=== PATIENT | male | born 1955 | race Caucasian/White ===

== ENCOUNTER 2023-05-30 19:41 | Emergency (ER) | payer OTHER, SELFPAY ==
--- NOTE | ~2023-05-30 | XR_ITS ---
EXAMINATION: XR ribs BI 3V w CXR 2V DATE: 05/30/2023 20:50 INDICATION: Right rib pain. Fall. TECHNIQUE: Frontal and lateral views of the chest and 2 views on 3 radiographs of the right ribs and 2 views on 3 radiographs of the left ribs were obtained. COMPARISON: None. FINDINGS: CHEST TWO VIEWS: There is no pneumonia, pleural effusion, or pneumothorax. The heart size is normal. BILATERAL RIBS: There is no rib fracture. IMPRESSION: 1. No rib fracture. Reviewed, dictated and finalized at location E. ER HELPER IMPRESSION: 1. No rib fracture.
--- NOTE | ~2023-05-30 | CT_ITS ---
EXAMINATION: CT brain wo con DATE: 05/30/2023 20:57 INDICATION: Head injury. TECHNIQUE: Computed tomography (CT) of the head was performed without intravenous contrast. The mA wa s adjusted according to patient size. Iterative reconstruction technique was employed. The dose-lengt h product was 681.00 mGy-cm. COMPARISON: None FINDINGS: There is no intracranial hemorrhage, acute infarction, or abnormal intracranial mass lesion . There are scattered areas of low attenuation in the cerebral white matter, which is within normal l imits for the patient's age. The ventricles are normal in size. There is mucosal thickening in the pa ranasal sinuses. The orbits are normal. The mastoid air cells are normal. IMPRESSION: 1. Normal aging brain. Reviewed, dictated and finalized at location E. GER LIGHTING IMPRESSION: 1. Normal aging brain.
--- NOTE | ~2023-05-30 | CT_ITS ---
EXAMINATION: CT cervical spine wo con DATE: 05/30/2023 20:57 INDICATION: Head injury. TECHNIQUE: Computed tomography (CT) of the cervical spine was performed without intravenous contrast. Automated exposure control and iterative reconstruction technique were employed. The dose-length pro duct was 407.70 mGy-cm. COMPARISON: None FINDINGS: Bone alignment is normal. There is mild chronic anterior wedging of T1 vertebral body. Ther e is moderately decreased disc height at C2-C3, mildly decreased disc height at C3-C4 and C4-C5 and m oderately decreased disc height at C6-C7. There is developmental osseous central canal stenosis in ce rvical spine. The following disc levels are specifically discussed: C2-C3: There is mild bilateral uncovertebral joint osteoarthritis. There is severe right and mild lef t facet joint osteoarthritis. There is no neural foraminal stenosis. There is mild central canal sten osis. C3-C4: There is moderate right and mild left uncovertebral joint osteoarthritis. There is mild bilate ral facet joint osteoarthritis. There is mild right neural foraminal stenosis. There is mild central canal stenosis. C4-C5: There is mild bilateral uncovertebral joint osteoarthritis. There is severe right and mild lef t facet joint osteoarthritis. There is mild bilateral neural foraminal stenosis. There is mild centra l canal stenosis. C5-C6: There is mild bilateral uncovertebral joint osteoarthritis. There is mild right facet joint os teoarthritis. There is mild left neural foraminal stenosis. There is mild central canal stenosis. C6-C7: There is severe bilateral uncovertebral joint osteoarthritis. There is severe bilateral facet joint osteoarthritis. There is moderate bilateral neural foraminal stenosis. There is mild central ca nal stenosis. C7-T1: There is no uncovertebral joint osteoarthritis. There is severe right and mild left facet join t osteoarthritis. There is mild right neural foraminal stenosis. There is no central canal stenosis. IMPRESSION: 1. No fracture. 2. Moderate cervical spondylosis. Reviewed, dictated and finalized at location E. NG MACHINE TENDER
[2023-05-30 19:46] VITALS: BP 151/82; PULSE 75; RESP 16; TEMP 36.7; O2SAT 100
--- NOTE | 2023-05-30 20:54 | ED.FALL ---
HPI - Fall General Chief Complaint: Fall Stated Complaint: Fall Time Seen by Provider: 05/30/23 20:05 Source: patient Mode of arrival: ambulatory Limitations: no limitations History of Present Illness HPI Narrative: 68-year-old male presents today with complaints of a fall. Patient was at work today carrying a tray of dishes when he fell forward. Landing chest and face 1st. Hitting his right forehead on a tray landing on the dishes. Patient with complaints of pain to the right chest wall some discomfort to the right wrist but not much. He did not think he hit his head at 1st but noticed abrasion with some swelling to the right forehead. He is not on blood thinners but does take a baby aspirin every night. This occurrence happened at 5:30 a.m. this evening. complaint: fall Related Data Allergies Allergy/AdvReac Type Severity Reaction Status Date / Time lisinopril Allergy Swelling Verified 05/30/23 19:50 of Lip/Tongue/Throat Review of Systems Review of Systems: All systems reviewed & are unremarkable except as noted in HPI and below [facility] Past Medical History Medical History (Updated 05/31/23 @ 02:41 by Gisele Lopez APRN) HTN (hypertension) with goal to be determined ME (myocardial infarction) Exam Const: General: cooperative, healthy appearing, comfortable, no acute distress and well developed Orientation/consciousness: patient oriented x3 HENMT: Head: normal to inspection Other: Right forehead abrasion with small amount of swelling Eyes: General: appearance normal, both eyes and all related structures Chest: Chest palpation & inspection: normal inspection of the chest and tenderness rib (right lower ribs) Other: no noted deformity or ecchymosis Resp: Effort & Inspection: normal respiratory effort and able to speak in complete sentences Auscultation: clear to auscultation bilaterally Cardio: Rate: regular rate Rhythm: regular rhythm Heart sounds: S1 normal heart sound present and S2 normal heart sound present Back/Spine/Pelvis: Cervical Spine: cervical ROM normal, No pain with cervical ROM and No Cervical spine tenderness Thoracic/Lumbar Spine: thoracic and lumbar spine normal to inspection, No paraspinal muscle tenderness and No thoracic spinal tenderness Neuro: General: patient oriented x3 Cranial nerves: Yes CN's II-XII intact bilaterally, Yes Equal, round and reactive pupils present, Yes Nystagmus not present, Yes facial symmetry, Yes Ability to bilaterally rotate head present and Yes Ability to bilaterally elevate shoulders present Motor exam (neuro): 5/5 motor strength present throughout Extrem: Other: Right wrist full range of motion, no edema no erythema no lacerations no bruising noted Course Vital Signs Vital signs: Vital Signs Temperature 98.1 F 05/30/23 19:46 Pulse Rate 75 05/30/23 19:46 Respiratory Rate 16 05/30/23 19:46 Blood Pressure 151/82 H 05/30/23 19:46 Pulse Oximetry 100 05/30/23 19:46 Oxygen Delivery Room Air 05/30/23 19:46 Temperature 98.1 F 05/30/23 19:46 Pulse Rate 72 05/30/23 22:26 Respiratory Rate 16 05/30/23 22:26 Blood Pressure 135/74 05/30/23 22:26 Pulse Oximetry 99 05/30/23 22:26 Oxygen Delivery Room Air 05/30/23 20:15 MDM - Fall MDM Narrative Medical decision making narrative: 5-year-old male HPI as noted workup to include CT cervical spine, CT brain, rib x-ray. CT of brain no acute findings. CT cervical spine shows spondylosis. Rib x-ray no fractures noted. No indication for imaging to right wrist. Reviewed with patient and patient be discharged home. Tylenol as needed for pain. Patient in agreement will follow up with primary care return with any new or worsening concerns. Differential Diagnosis Differential diagnosis: Likely fracture of wrist and compression fracture Medical Records Attestation: I reviewed the patient's medical records. Imaging Data Radiologist's impress
[2023-05-30 22:26] VITALS: BP 135/74; PULSE 72; RESP 16; O2SAT 99
== END 2023-05-30 22:28 | disposition home or self-care (01) ==
PROVIDERS: Emergency Provider Nurse Practitioner Family
DX: M47.812 Spondylosis without myelopathy or radiculopathy, cervical region (principal); S09.90XA Unspecified injury of head, initial encounter; I10 Essential (primary) hypertension; I25.2 Old myocardial infarction; W18.39XA Other fall on same level, initial encounter; Y99.0 Civilian activity done for income or pay
CPT/HCPCS: 70450; 71046; 71110; 72125; 99284

== ENCOUNTER 2025-04-01 14:05 | Outpatient (CLI) | payer MEDICARE, SELFPAY ==
--- OUTSIDE RECORDS SUMMARY | 2024-12-15 07:02 | XMS_ITS | Continuity of Care Document ---
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 [facility] [address], [place], [place], [address] , tel:[phone] [facility] Medication managementNon morbid obesity due to excess calories [address], [address], . [phone] Referring Provider: [address], [place], [address] . tel:[phone] [facility] [address], [place], [place], [address] , tel: [phone] [facility] Medication managementNon morbid obesity due to excess calories 6 [address], [address], . tel:[phone] Referring Provider: [address], [place], [address] . tel:[phone] [facility] [address], [place], [place], [address] , tel: [phone] [facility] Essential (primary) hypertensionMixe d hyperlipidemiaCo ronary artery disease involving [place] coronary artery of [place] heart without angina pectorisOld ID (myocardial infarction)Morbi d obesity due to excess calories 6 Plisco Akhil. [address], [place], [place], [address], . tel:[phone] Referring Provider: Akhil Loera, [place], [address] . tel:[phone] [facility] [address], [place], [place], [address] , tel: [phone] [facility] Non morbid obesity due to excess caloriesEssentia l (primary) hypertensionOld ID (myocardial infarction)Mixed hyperlipidemiaCo ronary artery disease involving [place] coronary artery of [place] heart without angina pectorisHistory of skin cancer 6 Plisco Landaverde. [address], [address], [place]. tel:[phone] Referring Provider: Akhil Loera, [place], [address] . tel:[phone] [facility] [address], [place], [place], [address] , tel: [phone] [facility] Physical examBenign essential hypertensionMixe d hyperlipidemiaCo ronary artery disease involving [place] coronary artery of [place] heart without angina pectorisOld myocardial infarctionNon morbid obesity due to excess calories 6 Plisco Akhil. [address], [place], [place], [address], [place]. [phone] Referring Provider: Akhil Loera, [place], [address] . tel:[phone] [facility] [address], [place], [place], [address] , tel: [phone] [facility] RUQ abdominal pain 5 Pljoel Landaverde. [address], [place], [place], [address], . tel:[phone] Referring Provider: Akhil Loera, [address], [place], [address] . tel:[phone] [facility] [address], [place], [place], [address] , tel: [phone] [facility] No Information 8 5 Plisco Landaverde. [address], [place], [place], [address], . [phone] [facility] [address], [place], [place], [address] , tel: [phone] [facility] HTN (hypertension), benignHyperlipid emiaCAD (coronary artery disease)Old ID (myocardial infarction)Depre ssionBilateral hand painObesity 3-201 5 Plisco Akhil. [address], [place], [place], [address], . [phone] Referring Provider: Akhil Loera, [address], [place], [address] . tel:[phone] [address] [address], [place], [place], [address] , tel: [phone] [facility] CAD (coronary artery disease)HTN (hypertension), benignHyperlipid emiaOld ID (myocardial infarction)Depre ssionObesity 5 Pljoel Landaverde. [address], [place], [place], [address], . tel:[phone] Referring Provider: Akhil Loera, [address], [place], [address] . tel:[phone] [facility] [address], [place], [place], [address] , tel: [phone] [facility] CAD (coronary artery disease)HTN (hypertension), benignHyperlipid emiaPenile lesionAnnual physical examShoulder painDepressionOl d ID (myocardial infarction) 5 Plisco Landaverde. [address], [place], [place], [address], . tel:[phone] Referring Provider: Akhil Loera, [address], [place], [address] . tel:[phone] [facility] [address], [place], [place], [address] , tel: [phone] [facility] HTN (hypertension), benignHyperlipid emiaAnxiety attackED (erectile dysfunction)Weig ht lossCAD (coronary artery disease)Old ID (Greater Than 8 Weeks)Hand arthritisPenile lesion 4 Plisco Landaverde. [address], [place], [place], [address], . tel:[phone] Referring Provider: Akhil Loera, [address], [place], [address] . [phone] [facility] [address], [place], [place], [address] , tel: [phone] [facility] Abdominal painHTN (hypertension), benign Oct-08 24- 4 Plisco Landaverde. [address], [place], [place], [address], [place]. tel:[phone] Referring Provider: Akhil Loera, [address], [place], [address] . tel:[phone] [facility] [address], [place], [place], [address] , tel: [phone] [facility] Abdominal mass Oct-2 1-201 4 Plisco Landaverde. [address], [place], [place], [address], [place]. tel:[phone] Referring Provider: Akhil Loera, [address], [place], [address] . tel:[phone] [facility] [address], [place], [place], [address] , tel: [phone] [facility] History of fall/At Risk For FallingScreening for unspecified conditionAnnual physical examOld ID (Greater Than 8 Weeks)Routine Medical Exam 0 4 Plisco Akhil. [address], [place], [address], . tel:[phone] Referring Provider: [address], [place], [address] . tel:[phone] [facility] [address], [place], [place], [address] , tel: [phone] [facility] CAD (coronary artery disease)Old ID (myocardial infarction)Hyper lipidemiaHTN (hypertension)BP H (benign prostatic hypertrophy) 3 Plisco Landaverde. [address], [place], [place], [address], . tel:[phone] Referring Provider: Akhil Loera, [place], [address] . tel:[phone] [facility] [address], [place], [place], [address] , tel: [phone] [facility] Benign essential hypertensionHype rlipidemiaOld ID (myocardial infarction)Coron paula atherosclerosis of unspecified type of vessel, [place] or graftCat allergiesBPH (benign prostatic hyperplasia) 3 Plisco Akhil[address], [place], [place], [address], . tel:[phone] Referring Provider: Akhil Loera, [address], [place], [address] . tel:[phone] [facility] [address], [place], [place], [address] , tel: [phone] [facility] Other and unspecified hyperlipidemiaBe nign essential hypertensionOld myocardial infarctionPain in limb 3 Plisco Akhil. [address], [place], [place], [address], . tel:[phone] Referring Provider: Akhil Loera, [place], [address] . tel:[phone] [facility], [address], [place], [place], [address] , tel: [phone] [facility] HyperlipidemiaOl d ID (myocardial infarction)CAD (coronary artery disease) 0-201 2 Plisco Akhil[address], [place], [place], [address], . tel:[phone] Referring Provider: Akhil Loera, [address], [place], [address] . tel:[phone] [facility], [address], [place], [place], [address] , tel: [phone] [facility] HYPERLIPIDEMIA NEC/NOSOLD MYOCARDIAL INFARCTCAD (coronary artery disease) 0-201 2 Plisco Landaverde. [address], [address], . tel:[phone] Referring Provider: Akhil Loera, [address], [place], [address] . tel:[phone] [facility], [address], [place], [place], [address] , tel: [phone] [facility] Chronic ischemic heart disease, unspecifiedPain in limbOld myocardial infarctionJOINT PAIN-HAND 0-201 2 Plisco Landaverde. [address], [place], [place], [address], . tel:[phone] Referring Provider: Akhil Loera, [address], [place], [address] . tel:[phone] [facility], [address], [place], [place], [address] , tel: [phone] [facility] 0-201 1 Luz Maria Landaverde. [address], [place], [place], [address], . tel:[phone] Referring Provider: [address], [place], [address] . tel:[phone] [facility] [address], [place], [place], [address] , [place] tel: [phone] [facility] No Information Jan-0 4-201 1 Plisco Landaverde. [address], [place], [place], [address], [place]. tel: [phone] [facility] [address], [place], [place], [address] , [place] tel: [phone] [facility] JOINT PAIN-HANDOLD MYOCARDIAL INFARCTANAL OR RECTAL PAIN November-0 3-201 1 Plisco Landaverde. [address], [place], [place], [address], [place]. tel: [phone] [facility] [address], [place], [place], [address] , tel: [phone] [facility] BENIGN HYPERTENSIONCHR ISCHEMIC HRT DIS NOS Jun-2 7-201 0 Plisco Landaverde. [address], [place], [place], [address], [place]. tel: [phone] [facility] [address], [place], [place], [address] , [place] tel: [phone] [facility] URINARY FREQUENCYHYPERLI PIDEMIA NEC/NOSLONG-TERM USE MEDS NEC Feb-2 3-201 0 Plisco Landaverde. [address], [place], [place], [address], [place]. tel:[phone] [facility] [address], [place], [place], [address] , [place] tel: [phone] [facility] COUGHRECTAL & ANAL DIS NEC Oct-2 6-201 0 Plisco Landaverde. [address], [place], [place], [address], [place]. tel: [phone] [facility] [address], [place], [place], [address] , tel: [phone] [facility] RECTAL & ANAL HEMORRHAGE Dec-2 1-200 9 Plisco Landaverde. [address], [place], [place], [address], [place]. tel:[phone] [facility], [address], [place], [place], [address] , [place] tel:[phone] [facility] LOC PRIM OSTEOARTH-HAND 4-200 9 Plisco Landaverde. [address], [place], [place], [address], [place]. tel:[phone] [facility], [address], [place], [place], [address] , [place] tel:[phone] [facility] PAIN IN LIMB Dec- 1-200 9 Plisco Landaverde. [address], [place], [place], [address], [place]. tel:[phone] [facility], [address], [place], [place], [address] , tel:[phone] [facility] LOC PRIM OSTEOART-L/LEG 8-200 9 Plisco Landaverde. [address], [place], [place], [address], [place]. tel:[phone] [facility], [address], [place], [place], [address] , [place] tel:[phone] [facility] No Information 6200 9 Plisco Landaverde. [address], [place], [place], [address], [place]. tel:[phone] [facility], [address], [place], [place], [address] , [place] tel: [phone] [facility] IMPOTENCE, ORGANIC ORIGN 6200 9 Conversion Doctor. [address], [place], [address], [place]. [facility], [address], [place], [place], [address] , tel:[phone] [facility] CARLA HY KID W CR KID I-IV Mar- 2-200 8 Plisco Landaverde. [address], [place], [place], [address], [place]. tel:[phone] [facility], [address], [place], [place], [address] , [place] tel: [facility] 7-200 8 Plisco Landaverde. [address], [place], [place], [address], [place]. tel:[phone] [facility], [address], [place], [place], [address] , [place] tel: [facility] CHR KIDNEY DIS STAGE III Mar-2 4-200 7 Plisco Landaverde. [address], [place], [place], [address], [place]. tel:[phone] [facility], [address], [place], [place], [address] , [place] tel: [facility] SKIN DISORDER NOSANAL & RECTAL ABSCESS 1-200 7 Plisco Landaverde. [address], [place], [place], [address], [place]. tel:[phone] [facility], [address], [place], [place], [address] , [place] tel: [facility] DERMATITIS NOS 1-200 6 Plisco Landaverde. [address], [place], [place], [address], [place]. tel:[phone] [facility], [address], [place], [place], [address] , [place] tel: [facility] LONG-TERM USE ANTICOAGUL 3-200 6 Plisco Landaverde. [address], [place], [place], [address], [place]. tel:[phone] [facility], [address], [place], [place], [address] , [place] tel: [facility] CVA 6-200 5 Plisco Landaverde. [address], [place], [place], [address], [place]. tel:[phone] [facility], [address], [place], [place], [address] , [place] tel: [phone] [facility] DISORDER OF PENIS NEC 2-200 4 Plisco Landaverde. [address], [place], [place], [address], [place]. tel:[phone] [facility], [address], [place], [place], [address] , [place] tel: [phone] [facility] SCRN MALIG NEOP-PROSTATE 1-200 3 Plisco Landaverde. [address], [place], [place], [address], [place]. tel: [phone] [facility], [address], [place], [place], [address] , [place] tel: [phone] [facility] SPRAIN OF NECK 7-200 2 Plisco Landaverde. [address], [place], [place], [address], [place]. tel:[phone] Family History Family Member Type Diagnosis Age At Onset No Information Immunizations Vaccine Date Status Comments Influenza, high-dose, trivalent, PF administered Source: Other Provid er COVID-19, mRNA, LNP-S, PF, janeth-sucrose, 30 mcg/0.3 mL administered Source: Othe r Provider Flublok, quadrivalent, preservative free, 0.5mL dosage administered Source: New Immunization Record Pfizer (Bivalent Booster) CO VID Vac, 30mcg/0.3mL, 12+ years administered Source: Othe r Provider Pfizer-BioNTech COVID19 Vaccine, 0.3mL per dose, 2 doses, administered 21 days apart administered Source: Other Provid er Pfizer-BioNTech COVID19 Vaccine, 0.3mL per dose, 2 doses, administered 21 days apart administered Source: Other Provid er Fluzone Quad, preservative free, split virus, 0.5mL dosage administered Note: CV S ; Source: Source Unspecified Pneumococcal polysaccharide PPV23 administered Source: New Immuniza tion Record Flublok, quadrivalent, preservative free, 0.5mL dosage administered Source: New Immunization Record Flublok, quadrivalent, preservative free, 0.5mL dosage administered Source: Source Unspecified SHINGRIX (Zoster vaccine recombinant, adjuvanted) administered Source: Source Unspecified Pneumococcal conjugate PCV 13 administere d Source: Source Unspecified Flucelvax Quad , preservative free, 0.5mL dosage administered Note: CV S ; Source: Source Unspecified Influenza, injectable, quadrivalent, preservative free, 3 yrs or older administered Source: Source Unsp ecified influenza, injectable, quadrivalent, (3 years or older) administered Note: [facility] ; So urce: Other Registry Payers Payer name Insurance type Covered green party ID Authoriza tion(s) MEDICARE MB [id number] AARP MDCR SUPPLEMENT ONLY CI [id number] MEDICARE MB [id number] AARP MDCR SUPPLEMENT ONLY CI [id number] MEDICARE MB [id number] AARP PRIMARY CARRIER CLAIMS CI [id number] MEDICARE MB [id number] AARP PRIMARY CARRIER CLAIMS CI [id number] Social History Type Description Quantity Date Captured Comments Sex Male Smoking Status No Information Chief Complaint And Reason For Visit No Information Reason For Referral Reason For Referral No Information Plan Of Treatment Date Type Action Status Goal Dietary management education , guidance, and counseling completed Goal Dietary management education , guidance, and counseling completed Goal Dietary management education , guidance, and counseling completed Goal Dietary management education , guidance, and counseling completed Goal Dietary management education , guidance, and counseling completed Goal Dietary management education , guidance, and counseling completed Goal Dietary management education , guidance, and counseling completed Goal Dietary management education , guidance, and counseling completed Goal Dietary management education , guidance, and counseling completed Goal Dietary management education , guidance, and counseling completed Goal Dietary management education , guidance, and counseling completed History Of Present Illness Encounter Date Complaint History Of Prese nt Illness PE Pt is here for a nnual PEAdu General Medical ExamMetabolic Screening: Will check CMPImmune Screening: Will check CBCCardiovascular Screening: Will check Lipid panel Chronic Conditions *See Chronic Conditions HPI Medicare preventive The patient has not felt depressed and has had interest and pleasure doing things recently. SLUMS assessment completed, with a total score of 27, Normal. The ''Up and Go'' test took less than 30 seconds andthe patient does not need help with activities of daily living. The patient is at risk for falls. The patient has fallen 1 times in the last year. The fall(s) did not result in injury. Patient's activity level is vigorous. Patient exercises 3-4 times/week. The patient has smoke detectors, firearms, carbon monoxide detectors, gas heating in the home. There is no radon in the patient's home. Patient reports using a seatbelt in vehicles. Patient denies recent weight gain. Patient reports recent weight loss of 7 lbs, 3.18 kgs over 6 Months. Patient does not take calcium. Patient reports not taking Vitamin D. Patient reports taking a multivitamin daily. Patient does not take folic acid. Relevant history is negative for passive vaping exposure, passive smoke exposure and alcohol use. Patient is a former tobacco user. Screening services were reviewed, no changes made. 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 Lives with partner. Pt is up to date with age appropriate screening and vaccinations.Metabolic Screening: Will check CMPImmune Screening: Will check CBCCardiovascular Screening: Will check Lipid panelProstate cancer screening: Will check PSA, risk and benefits discussed Chronic Conditions *See Chronic Conditions HPI Medicare preventive The patient has not felt depressed and has had interest and pleasure doing things recently. SLUMS assessment completed, with a total score of 25, Mild Neurocognitive Disorder. The ''Up and Go'' test took longer than 30 seconds andthe patient needs help with activities of daily living. The patient is at risk for falls. The patient has in the last year. The fall(s) resulted in injury. Patient's activity level is vigorous. Patient exercises 3-4 times/week. The patient has smoke detectors, firearms, carbon monoxide detectors, gas heating in the home. There is no radon in the patient's home. Patient reports using a seatbelt in vehicles. Patient denies recent weight gain. Patient does not take calcium. Patient reports taking a vitamin D supplement. Patient reports taking a multivitamin daily. Patient reports taking folic acid daily. Relevant history is negative for passive vaping exposure and passive smoke exposure. Patient is a former tobacco user, alcohol user. Screening services were reviewed, no changes made. Hospital Discharge Pt is here fo r hospital discharge on the 6, went to ED. Had a fall at work, hit head and the side. per Pt CT reports and everything was normal and wad discharged back to work. Today pt denies headaches, fever, chills, SOB, rib pain, or dizziness Chronic Conditions *See Chronic Conditions HPI chronic conditions *See Chronic Conditions HPI Chronic Conditions *See Chronic Conditions HPI .follow up MLR: LDL 69, HDL 40, PSA 1.02, Tri 66, neg Hep C screenRHM: Colonoscopy (06/07/2022) - normal, 10 year f/u;HTN:Pt is med compliant - Metoprolol 25 mg once daily, Losartan 50 mg half tablet once daily, ASA 81 mg once daily. HLD:Pt is med compliant - Atorvastatin 40 mg once daily. He reports myalgias in legs while at rest and while walking. Neuropathy: pt is med compliant - Gabapentin 300 mg one pill once daily. He states this keeps his neuropathy controlled. Hx neck pain:Pt followed with PT and states neck pain is improvedObesity: Weight today is 203.2 pounds. Feels good with his current meal & waling regimenMood Changes:Pt is no longer taking citalopram 20 mg (1.5 tablets) once daily as needed, and also stopped taking Aripiprazole 2mg was prescribed last office visit.ED: Pt requests Cialis 20 mg once daily both prostate & EDAnkle swelling:intermittent. .follow up for neuropathy MLR: L DL 69, HDL 40, PSA wnl, Tri 66RHM: Colonoscopy (07/2021) - normal, 10 year f/u;Neuropathy: pt is med compliant - Gabapentin 300 mg one pill once daily. He reports that this is helping decrease his symptoms but wears off around 2:30Hx neck pain:Pt followed with PT and states neck pain is improvedObesity: Weight today is 203.2 pounds. Feels good with his current meal & waling regimenMood Changes:Pt states med compliant - citalopram 20 mg (1.5 tablets) once daily as needed. Aripiprazole 2mg was prescribed last office visit. He reports that he feels much better with this med on boardED: Pt requests Cialis 5 mg be increased to 20mg po qd for both prostate & ED .follow up MLR: LDL 69, HDL 40, PSA wnl, Tri 66RHM: Colonoscopy (07/2021) - normal, 10 year f/u;HTN/CKD-II: Pt states med compliant- metoprolol 25 mg once daily, Losartan 50 mg 1/2 tablet once daily and ASA 81 mg once daily. Denies CP, SOB, lightheadedness, and edema. He reports having had SOB when he took one full tablet of Losartan, hence why he takes 1/2 tablet of Losartan currently. (+) hx allergy to lisinoprilHLD: Pt states med compliant- atorvastatin 40 mg once daily and ASA 81 mg once daily. No myalgia.CAD/Old ID/Hx of Stent Placement: Stent in LAD placed 07/25/2004 following single vessel ID. Last cath on record in 2004. Pt last saw Dr. Barrera in May 2018. Negative stress test. He has a script for NTG as needed. Pt is not currently seeing a bowling alley refinisher, insurance changed & that bowling alley refinisher didn't take medicareExtremity numbness/Neck Pain:Pt followed with PT and states neck pain is improved. (+) neuropathy in Both hands persists. Pt states he was evaluated by a specialist in the past, was told it came from an issue in his neck, had injections in his hand. He is unable to sleep on either side without worsening symptoms. Hands are tingling currently. Obesity: Weight down approx 6 lbs today. Weight today is 195.5 pounds. Pt reports he started a part-time job, walks over 10,000 steps a day and only eats one meal a day. Feels good with this regimenMood Changes:Pt states med compliant - citalopram 20 mg (1.5 tablets) once daily as needed. He reports that he gets a bit [place] in winter and has noticed this the past couple of weeksED: Pt states med compliant - Cialis 5 mg as needed. No new complaints. No urinary symptoms. .htn MLR: RHM: Janie hobbs (01/2011) - 10 year f/uHTN/CKD-II: Pt states med compliant- metoprolol 25 mg once daily, Losartan 50 mg 1/2 tablet once daily and ASA 81 mg once daily. Denies CP, SOB, lightheadedness, and edema. HLD: Pt states med compliant- atorvastatin 40 mg once daily and ASA 81 mg once daily. No myalgia.CAD/Old ID/Hx of Stent Placement: Stent in LAD placed in 07/25/2004 following single vessel ID. Last cath on record in 2004. Pt last saw Dr. Barrera in May 2018. Negative stress test.Obesity: Weight up 4 lbs today. Pt reports no recent changes in diet or exercises. Mood Changes: Pt states med compliant - citalopram 20 mg once daily as needed. Mood stable. ED: Pt states med compliant - Cialis 5 mg as needed. No new complaints.Neck Pain/Extremity Numbness: Pt followed with PT and states the pain is improved. HTN MLR: RHM: Janie hobbs (01/2011) - 10 year f/uHTN/CKD-II: Pt states med compliant- metoprolol 25 mg once daily, Losartan 50 mg 1/2 tablet once daily and ASA 81 mg once daily. Denies CP, SOB, lightheadedness, and edema. HLD: Pt states med compliant- atorvastatin 40 mg once daily and ASA 81 mg once daily. No myalgia.CAD/Old ID/Hx of Stent Placement: Stent in LAD placed in 07/25/2004 following single vessel ID. Last cath on record in 2004. Pt last saw Dr. Barrera in May 2018. Negative stress test.Obesity: Pt reports no recent changes in diet or exercises. Mood Changes: Pt states med compliant - citalopram 20 mg once daily as needed. Mood stable. ED: Pt states med compliant - Cialis 5 mg as needed. No new complaints.Neck Pain/Extremity Numbness: Pt followed with PT and states the pain is improved. CAD f/u MLR: HDL 37, LDL 97, PSA 1.19, Hep C negativeRHM: Colonoscopy (01/2011) - 10 year f/uHTN/CKD-II: Pt states med compliant- Losartan 50 mg 1/2 tablet once daily and ASA 81 mg once daily. Denies CP, SOB, lightheadedness, and edema. Pt reports his blood pressure has started increasing since he stopped the metoprolol, Patient reports he cannot tolerate more than 1/2 a tablet of the Losartan. HLD: Pt states med compliant- atorvastatin 40 mg once daily and ASA 81 mg once daily. No myalgia.CAD/Old ID/Hx of Stent Placement: Stent in LAD placed in 07/25/2004 following single vessel ID. Last cath on record in 2004. Pt last saw Dr. Barrera in May 2018. Negative stress test.Obesity: Pt reports he stopped eating potato chips, stopped drinking soda, and has been trying to exercise regularly. Mood Changes: Pt states med compliant - citalopram 20 mg once daily as needed. Mood stable. ED: Pt states med compliant - Cialis 5 mg as needed. No new complaints.Neck Pain/Extremity Numbness: Pt reports he was told he pinched something in his neck and needs a referral for physical therapy. CAD MLR: PSA 1.52, H DL 35, 69, Hep C negativeRHM: DUE Colonoscopy (02/08/11) - 10 year f/uHTN/CKD-II: Pt states med compliant- Losartan 50 mg 1/2 tablet once daily, Metoprolol Tartrate 25 mg once daily, ASA 81 mg once daily. Denies CP, SOB, lightheadedness, and edema. HLD: Pt states med compliant- atorvastatin 40 mg once daily and ASA 81 mg once daily. No myalgia.CAD/Old ID/Hx of Stent Placement: Stent in LAD placed in 07/25/2004 following single vessel ID. Last cath on record in 2004. Pt last saw Dr. Barrera in May 2018. Negative stress test.Obesity: Pt reports no recent changes in diet or exercise. Mood Changes: Pt states med compliant - citalopram 20 mg once daily as needed. ED: Pt states med compliant - Cialis 5 mg as needed. No new complaints.Marijuana Use: Pt reports marijuana use. CAD f/u MLR: HDL 35, PSA 1.52, Hep C NegRHM: Colonoscopy (01/2011) - 10 yr f/uHTN/CKD-II: Pt states med compliant- Losartan 50 mg 1/2 tablet once daily, Metoprolol Tartrate 25 mg twice daily, ASA 81 mg once daily. Denies CP, SOB, lightheadedness, and edema. HLD: Pt states med compliant- atorvastatin 40 mg once daily and ASA 81 mg once daily. No myalgia.CAD/Old ID/Hx of Stent Placement: Stent in LAD placed in 07/25/2004 following single vessel ID. Last cath on record in 2004. Pt last saw Dr. Barrera in May 2018. Negative stress test.Obesity: Pt reports he is trying to remain active.Mood Changes: Pt states med compliant - citalopram 20 mg once daily as needed. Pt reports he feels he same as he did when he started this med. He denies racing thoughts, sadness, mood swings, inability to focus, tearfulness. Pt reports he still has anger issues every once in a while, which is why he believes he started this med.ED: Pt states med compliant - Cialis 5 mg as needed. No new complaints.Hx Fall/Extremity Numbness: Pt fell straight down the stairs, and caught himself with his hands. He complains of neck pain and reports sometimes he cannot raise his R arm up. His R arm goes numb when he uses it occasionally. He reports he is going to pain management who started him on piroxicam 20 mg once daily and tizanidine 4 mg 1/2-1 tab once daily. He was referred out to PT who he sees tomorrow (09/27/2020). MRI Neck @ [facility] CAD f/u MLR: CMP nml, PS A 1.52, HDL 35, LDL 69RHM: Colonoscopy (02/08/2011)-10 yr f/u; UTD Flu (04/19/2020)HTN/CKD-II: Pt states med compliant- Losartan 50 mg 1/2 tablet once daily, Metoprolol tartrate 25 mg one tab twice daily, ASA 81 mg one tab once daily. Denies CP, SOB, lightheadedness, and edema. HLD: Pt states med compliant- atorvastatin 40 mg one tab once daily as directed and ASA 81 mg one tab once daily. No myalgia.CAD/Old ID/Hx of stent placement: Stent in LAD placed in 07/25/2004 following single vessel ID. Last cath on record in 2004. Pt last saw Dr. Barrera in May 2018. Negative stress test.Obesity: Pt reports that he has been walking and playing golf recently.Mood Changes: Pt states med compliant - citalopram 20 mg once daily as needed. No SI/HI. Mood stable.ED: Pt states med compliant - Cialis 5 mg as needed. No new complaints.Tinnitus: Pt reports that his ears have been ringing recently, but he attributes this to getting old. HTN MLR: HDL 31, Hep C neg, LDL 64, PSA 0.82RHM: Colonoscopy (01/2011)-10 yr f/u; UTD flu shotHTN/CKD-II: Pt states med compliant- Losartan 25 mg once daily, Metoprolol tartrate 25 mg one tab twice daily, ASA 81 mg one tab once daily. Denies CP, SOB, lightheadedness, and edema. HLD: Pt states med compliant- atorvastatin 40 mg one tab once daily as directed and ASA 81 mg one tab once daily. No myalgia.CAD/Old ID/Hx of stent placement: Stent in LAD placed in 2004 following single vessel ID. Last cath on record in 2004. Pt last saw Dr. Barrera in May 2018. Negative stress test.Morbid obesity: Pt he has been playing golf and walking extra. HTN MLR: HDL 31, Hep C neg, LDL 64, PSA nmlRHM: Colonoscopy (2010)-10 yr f/u; DUE pneumovax 23, UTD flu shotMorbid obesity: No changes in diet or exercise. HTN/CKD-II: Pt states med compliant- Losartan 25 mg once daily, Metoprolol tartrate 25 mg one tab twice daily, ASA 81 mg one tab once daily. Denies CP, SOB, lightheadedness, and edema. Pt reports he was supposed to be on losartan 50 mg but then had SOB so he cut back to 25 mg. He doesn't have the discomfort on the 25 mg. HLD: Pt states med compliant- atorvastatin 40 mg one tab once daily as directed and ASA 81 mg one tab once daily. No myalgia.CAD/Old ID/Hx of stent placement: Stent in LAD placed in 2004 following single vessel ID. Last cath on record in 2004. Pt last saw Dr. Barrera in May 2018. Negative stress test. CAD MLR: HDL 37, Hep C neg, LDL 89, PSA nmlRHM: Colonoscopy (2010) was normal, 10 year follow up; DUE pneumovax 23, DUE flu shotMorbid obesity: Pt reports he is walking a lot when he plays golf and he is using a stationary bikeHTN/CKD-II: Pt states med compliant- Losartan 25 mg once daily, Metoprolol tartrate 25 mg one tab twice daily, ASA 81 mg one tab once daily. Denies CP, SOB, lightheadedness, and edema. HLD: Pt states med compliant- atorvastatin 40 mg one tab once daily as directed and ASA 81 mg one tab once daily. No myalgia.CAD/Old ID/Hx of stent placement: Stent in LAD placed in 2004 following single vessel ID. Last cath on record in 2004. Pt last saw Dr. Barrera in May 2018. Negative stress test. HTN MLR: HDL 37, Hep C neg, LDL 89, PSA nmlRHM: Colonoscopy (2010) was normal, 10 year follow up; UTD on Prevnar, flu shot, and ShingrixMorbid obesity: Pt reports he is walking a lot when he plays gold and he is using a stationary bikeHTN/CKD-II: Pt states med compliant with Metoprolol tartrate 25 mg one tab twice daily, ASA 81 mg one tab once daily, and losartan 50 mg one tab once daily as directed. Denies CP, SOB, lightheadedness, and edema. Hyperlipidemia: Pt states med compliant with atorvastatin 40 mg one tab once daily as directed and ASA 81 mg one tab once daily. No myalgia.CAD/Old ID/Hx of stent placement: Stent in LAD placed in 2004 following single vessel ID. Last cath on record in 2004. Pt last saw Dr. Barrera in May 2018. Negative stress test. CAD MLR: Chemistry g ood, HDL 37, LDL 89, PSA 0.89.RHM: Colonoscopy 02/08/2011 was normal - 10 year follow up (2020). UTD on Prevnar, flu shot, and Shingrix.Morbid obesity: Pt reports no new changes in diet or exercise. HTN/CKD-II: Pt states med compliant with Metoprolol tartrate 25 mg one tab twice daily, ASA 81 mg one tab once daily, and losartan 50 mg one tab once daily as directed. Denies CP, SOB, lightheadedness, and edema. Hyperlipidemia: Pt states med compliant with atorvastatin 40 mg one tab once daily as directed and ASA 81 mg one tab once daily. No myalgia.CAD/Old ID/Hx of stent placement: Stent in place and history of angioplasty. Last cath on record in 2004. Hx of single vessel ID. Functional Status Date Functional Assessmen t No Information Instructions Date Instruction Additional Infor mation -continue with 10mg of Atorvastatin at bedtime Related to Mixed hyperlipidemia -CBC: Pending Related to Dima williser for screening for diseases of the blood and blood-forming organs and certain disorders involving the immune mechanism -CMP: Pending Related to Paul vasques for metabolic disorder -Today's blood press ure is: 116/68. Continue healthy diet and routine exercise. Today weight is: 199lbs-please wear a seat belt at all times-please follow with dentist every 6 months-Up to date with age appropriate screening and vaccinations-SLUM score; Related to Encntr for general adult medical exam w/o abnormal findings -Lipid panel: Pending Related to Screening for cardiovascular condition -continue with curre nt meds- Status: Able to self-manage condition. Goals: Your goal is to be active. Barriers: No barriers to goal achievement have been identified. Related to Atherosclerotic heart disease of [place] coronary artery without angina pectoris -continue with current meds Rela mariza to Old myocardial infarction -continue with current meds Rela mariza to Essential (primary) hypertension Fall Risk Prevention Urinary Incontinence Dietary management e ducation, guidance, and counseling Related to Body mass index (BMI) 29.0-29.9, adult -stable-continue wit h Gabapentin-refill sent to pharmacy Related to Polyneuropathy, unspecified -continue with 10mg of Atorvastatin at bedtime-diet and exercise Related to Mixed hyperlipidemia -stable-continue with current me ds Related to Essential (primary) hypertension Dietary management e ducation, guidance, and counseling Related to Body mass index (BMI) 30.0-30.9, adult -stable-continue wit h current cardioprotective meds Related to Old myocardial infarction -PSA: Pending Related to Scredarryl vasques for prostate cancer -Lipid panel: Pending Related to Screening for cardiovascular condition -CBC: Pending Related to Encou nter for screening for diseases of the blood and blood-forming organs and certain disorders involving the immune mechanism -CMP: pending Related to Paul vasques for metabolic disorder -Today's blood press ure is: 116/78. Continue healthy diet and routine exercise. Today weight is: 210lbs-please wear a seat belt at all times-please follow with dentist every 6 months-Up to date with age appropriate screening and vaccinations Related to Encntr for general adult medical exam w/o abnormal findings -stable-continue wit h current medications- Status: Able to self-manage condition. Goals: Your goal is to be active. Barriers: No barriers to goal achievement have been identified. Related to Atherosclerotic heart disease of [place] coronary artery without angina pectoris -stable Related to Myalg ia, unspecified site -stable-continue wit h current medications Related to Essential (primary) hypertension Counseled on weight reduction Counseled on dietary changes Dietary management e ducation, guidance, and counseling Related to Body mass index (BMI) 31.0-31.9, adult -stable Related to Hospi jose discharge follow-up -stable-continue with Gabapentin Related to Polyneuropathy, unspecified -stable-on Aspirin- Status: Able to self-manage condition. Goals: Your goal is to be active. Barriers: No barriers to goal achievement have been identified. Related to Atherosclerotic heart disease of [place] coronary artery without angina pectoris -stable-continue wit h Metoprolol 25mg one time a day-diet and exercise Related to Essential (primary) hypertension Dietary management e ducation, guidance, and counseling Related to Body mass index (BMI) 31.0-31.9, adult -stable-continue wit h Gabapentin 300mg two times a day. Can cause drowsiness so please do not drive or operate heavy machinery Related to Polyneuropathy, unspecified -stable-continue wit h current medications-Nitroglycerin refill sent to pharmacy- Status: Able to self-manage condition. Goals: Your goal is to be active. Barriers: No barriers to goal achievement have been identified. Related to Atherosclerotic heart disease of [place] coronary artery without angina pectoris -stable-diet and exe rcise-Atorvastatin discontinued due to myalgia Related to Mixed hyperlipidemia -continue with Metop rolol 50mg one time a day-discontinue Losartan due to allergies-follow up with me in 3 months Related to Essential (primary) hypertension Fall Risk Prevention Dietary management e ducation, guidance, and counseling Related to Body mass index (BMI) 32.0-32.9, adult Urinary Incontinence Advised weight loss and leg elev ation Related to Effusion, right ankle Advised weight loss and leg elev ation Related to Effusion, left ankle Controlled, will mon itor.Labs: noneF/U in 4 months for HTN or sooner as needed. Charting performed by Renee Devi acting as scribe for Quita Loera. TELMA Whitehead: I reviewed the chart and agree with and approve of the documentation Related to History of neck pain Controlled at 110/70 . GOAL is less than 130/80. Continue current treatment plan. Encouraged low-sodium diet. Will continue to monitor.CONTINUE:Metoprolol 25 mg once dailyLosartan 50 mg half tablet once dailyASA 81 mg once daily. Related to Essential hypertension Encouraged a low-cho lesterol diet with regular cardiovascular exercise as tolerated. Continue current treatment plan. Will continue to monitor.HOLD:Atorvastatin due to myalgias. Related to Hyperlipidemia, unspecified hyperlipidemia type Continue regular exe rcise to help increase mood. Notify for any changes in mood or if developing SI/HI. Will monitor. Related to Mood changes BMI of 32.6 today. E ncouraged healthy dietary choices and increased activity. Focus on drinking plenty of water daily and getting adequate sleep. Will continue to monitor. Related to Body mass index (BMI) 32.0-32.9, adult BMI of 32.6 today. E ncouraged healthy dietary choices and increased activity. Focus on drinking plenty of water daily and getting adequate sleep. Will continue to monitor. Related to Obesity (BMI 30.0-34.9) CONTINUE:Cialis 20 m g once dailyWill monitor Related to Erectile dysfunction, unspecified erectile dysfunction type Improving with curre nt med regimenCONTINUE:Gabapentin 300 mg one pill TWICE day. Notify office for persisting or worsening symptoms. Will continue to monitor. Related to Neuropathy Medication management INCREASE:Cialis to 2 0 mg once dailyWill monitor Related to Erectile dysfunction, unspecified erectile dysfunction type BMI of 30 today. Enc ouraged healthy dietary choices and increased activity. Focus on drinking plenty of water daily and getting adequate sleep. Will continue to monitor. Related to Body mass index [BMI] 30.0-30.9, adult Controlled with curr ent treatment CONTINUE: Aripiprazole 2 mg once dailyCitalopram 20 mg 1.5 tabs dailyContinue regular exercise to help increase mood. Notify for any changes in mood or if developing SI/HI. Will monitor. Related to Mood changes BMI of 30 today. Enc ouraged healthy dietary choices and increased activity. Focus on drinking plenty of water daily and getting adequate sleep. Will continue to monitor.Labs: noneF/U in 4 months for HTN or sooner as needed. Charting performed by Renee Devi acting as scribe for Quita Loera. TELMA Whitehead: I reviewed the chart and agree with and approve of the documentation Related to Obesity (BMI 30.0-34.9) Improving with curre nt med regimenINCREASE:Gabapentin 300 mg one pill once daily to TWICE day. Notify office for persisting or worsening symptoms. Will continue to monitor. Related to Neuropathy Medication management BMI of 28.9 today. E ncouraged healthy dietary choices and increased activity. Focus on drinking plenty of water daily and getting adequate sleep. Will continue to monitor. Related to BMI 28.0-28.9,adult BMI of 28.9 today. E ncouraged healthy dietary choices and increased activity. Focus on drinking plenty of water daily and getting adequate sleep. Will continue to monitor. Related to Other obesity Stable. Continue cur rent treatment - Cialis 5 mg as needed. Will monitor.Labs: noneF/U in 1 month for neuropathy and 4 months for HTN or sooner as needed. Charting performed by Renee Devi acting as scribe for Quita Loera. TELMA Whitehead: I reviewed the chart and agree with and approve of the documentation Related to Erectile dysfunction, unspecified erectile dysfunction type Fair control with cu rrent treatment START: Aripiprazole 2 mg once dailyCONTINUE- Citalopram 20 mg 1.5 tabs dailyContinue regular exercise to help increase mood. Notify for any changes in mood or if developing SI/HI. Will monitor.Follow up in 1 month, sooner if needed Related to Mood changes Symptomatic, hands. START:Gabapentin 300 mg once nightly before bedNotify office for persisting or worsening symptoms. Will continue to monitor.Follow up 1 month, sooner if needed Related to Extremity numbness Controlled with curr ent treatment CONTINUE- Atorvastatin 40 mg once dailyASA 81 mg once dailyFollow a low-cholesterol diet with regular cardiovascular exercise as tolerated. Will continue to monitor. Related to Mixed hyperlipidemia History of single ve ssel ID. Currently asymptomatic with current treatmentNegative stress test in 2018CONTINUE - Metoprolol Succinate ER 25 mg once dailyLosartan 50 mg 1/2 tab once dailyASA 81 mg one tab once dailyWill continue to modify risk factors. Will continue to monitor. Related to Old ID (myocardial infarction) Asymptomatic. Contin ue current treatment - Metoprolol Succinate ER 25 mg once dailyLosartan 50 mg 1/2 tab once dailyASA 81 mg one tab once dailyContinue to modify risk factors. Will continue to monitor.Status: Meeting treatment plan goals. Goals: Your goal is to manage your medicine. Barriers: No barriers to goal achievement have been identified. Related to Coronary artery disease involving [place] coronary artery of [place] heart without angina pectoris Stent in LAD placed in 2004 following single vessel ID. See above. Will monitor Related to History of intravascular stent placement Controlled at 96/70. GOAL is less than 130/80. CONTINUE:Metoprolol Succinate ER 25 mg once dailyLosartan 50 mg 1/2 tab once dailyASA 81 mg one tab once dailyContinue heart healthy, low-sodium diet. Will continue to monitor. Related to Benign hypertension with CKD (chronic kidney disease), stage II Continue good hydrat ion. Avoid nephrotoxins like NSAID pain killers as possible. Will continue to monitor Related to Chronic kidney disease, stage 2 (mild) Medication management See plan above. Related to Body mass index [BMI] 30.0-30.9, adult Symptomatic. Referri ng patient to physical therapy today. Notify office for persisting or worsening symptoms. Will continue to monitor. Related to Neck pain Screen PSA in office today. Labs: PSA, CMP, LipidsFollow up in 4 months for HTN or sooner as needed.Contact Dr. Loera BEFORE you go to the Emergency Room. Providers are available 24 hrs/day for medical problems. The ER is for life-threatening emergencies- most patient medical problems can be handled by the Providers over the phone or in the office. Emergency Room visits are expensive and time-consuming. Office: [phone] performed by Errol Rodriguez, acting as scribe for Dr. Loera.Dr. Akhil Loera MD: I reviewed the chart and agree with and approve of the documentation. Related to Screening PSA (prostate specific antigen) Symptomatic. Referri ng to physical therapy today. Notify office for persisting or worsening symptoms. Will continue to monitor. Related to Extremity numbness Continue current mary ellen atment - atorvastatin 40 mg once daily as directed and ASA 81 mg once daily. Encouraged a low-cholesterol diet with regular cardiovascular exercise as tolerated. Will continue to monitor. Related to Mixed hyperlipidemia Mood stable. Continu e current treatment - citalopram 20 mg to 1.5 tabs daily. Recommend regular exercise to help increase mood. Monitor. Notify for any changes in mood or if developing SI/HI. Related to Mood changes History of single ve ssel ID. Asymptomatic. Negative stress test in 2018 - continue to complete stress tests annually. Continue current treatment - ASA 81 mg one tab once daily and losartan 50 mg 1/2 tab once daily. Will continue to modify risk factors. Will continue to monitor. Related to Old ID (myocardial infarction) Stent in LAD placed in 2004 following single vessel ID. Related to History of intravascular stent placement Stable. Continue cur rent treatment - Cialis 5 mg as needed. Will monitor. Related to Erectile dysfunction, unspecified erectile dysfunction type CONTINUE:metoprolol 25 mg once dailylosartan 50 mg 1/2 tab once dailyASA 81 mg one tab once dailyEncouraged low-sodium, low-sugar diet. Will continue to monitor. Related to Benign hypertension with CKD (chronic kidney disease), stage II BMI of 30.5 today. E ncouraged healthy dietary choices and increased activity. Focus on drinking plenty of water daily and getting adequate sleep. Will continue to monitor. Related to Obesity (BMI 30.0-34.9) Asymptomatic. Contin ue current treatment - ASA 81 mg one tab once daily and losartan 50 mg 1/2 tab once daily. Will continue to modify risk factors. Will continue to monitor. Status: Meeting treatment plan goals. Goals: Your goal is to manage your medicine. Barriers: No barriers to goal achievement have been identified. Related to Coronary artery disease involving [place] coronary artery of [place] heart without angina pectoris Encourage ample hydr ation. Avoid nephrotoxins like NSAID pain killers as possible. Related to Chronic kidney disease, stage 2 (mild) Medication management BMI of 30.5 today. E ncouraged healthy dietary choices and increased activity. Focus on drinking plenty of water daily and getting adequate sleep. Will continue to monitor. Labs: none today.Follow up in 4 months for CAD or sooner as needed.Contact Dr. Loera or visit an Urgent Care BEFORE you go to the Emergency Room. The average wait for the emergency room is 6 hours and is more expensive than a visit to Urgent Care. Most patient medical problems can be handled by the Providers over the phone or in the office. Providers are available 24 hrs/day for medical problems. Medication refills will not be fulfilled after hours. Office: [phone]. Charting performed by Errol Leiva, acting as scribe for Khadra.Kenneth Loera MD: I reviewed the chart and agree with and approve of the documentation. Related to Obesity (BMI 30.0-34.9) Encouraged a low-cho lesterol diet with regular cardiovascular exercise as tolerated. Continue current treatment - atorvastatin 40 mg once daily as directed and ASA 81 mg once daily. Will continue to monitor. Related to Mixed hyperlipidemia Mood stable. Continu e current treatment - citalopram 20 mg to 1.5 tabs daily. Recommend regular exercise to help increase mood. Monitor. Notify for any changes in mood or if developing SI/HI. Related to Mood changes Stable. Continue cur rent treatment - Cialis 5 mg as needed. Will monitor. Related to Erectile dysfunction, unspecified erectile dysfunction type Stent in LAD placed in 2004 following single vessel ID. Related to History of intravascular stent placement Asymptomatic. Contin ue current treatment - ASA 81 mg one tab once daily and losartan 50 mg 1/2 tab once daily. Will continue to modify risk factors. Will continue to monitor. Status: Meeting treatment plan goals. Goals: Your goal is to manage your medicine. Barriers: No barriers to goal achievement have been identified. Related to Coronary artery disease involving [place] coronary artery of [place] heart without angina pectoris Encourage ample hydr ation. Avoid nephrotoxins like NSAID pain killers as possible. Related to Chronic kidney disease, stage 2 (mild) History of single ve ssel ID. Asymptomatic. Negative stress test in 2018 - continue to complete stress tests annually. Continue current treatment - ASA 81 mg one tab once daily and losartan 50 mg 1/2 tab once daily. Will continue to modify risk factors. Will continue to monitor. Related to Old ID (myocardial infarction) Controlled. Continue current treatment - metoprolol 25 mg once daily, losartan 50 mg 1/2 tab once daily and ASA 81 mg one tab once daily. Encouraged low-sodium, low-sugar diet. Will continue to monitor. Related to Benign hypertension with CKD (chronic kidney disease), stage II Medication management Symptomatic. Referri ng patient to physical therapy today. Notify office for persisting or worsening symptoms. Will continue to monitor. Related to Neck pain Symptomatic. Referri ng to physical therapy today. Notify office for persisting or worsening symptoms. Will continue to monitor. Related to Extremity numbness BMI of 30.57 today. Encouraged healthy dietary choices and increased activity. Focus on drinking plenty of water daily and getting adequate sleep. Will continue to monitor. Related to Obesity (BMI 30.0-34.9) See plan above. Labs : None today. Follow up in 4 months for HTN or sooner as needed.Contact Dr. Loera BEFORE you go to the Emergency Room. Providers are available 24 hrs/day for medical problems. The ER is for life-threatening emergencies- most patient medical problems can be handled by the Providers over the phone or in the office. Emergency Room visits are expensive and time-consuming. Office: [phone] performed by Errol Rodriguez, acting as scribe for Dr. Loera.Dr. Akhil Loera MD: I reviewed the chart and agree with and approve of the documentation. Related to Body mass index [BMI] 30.0-30.9, adult Schedule colonoscopy. Related to Screen for colon cancer Stent in LAD placed in 2004 following single vessel ID. Related to History of intravascular stent placement Stable. Continue cur rent treatment - Cialis 5 mg as needed. Will monitor. Related to Erectile dysfunction, unspecified erectile dysfunction type Encouraged a low-cho lesterol diet with regular cardiovascular exercise as tolerated. Continue current treatment - atorvastatin 40 mg once daily as directed and ASA 81 mg once daily. Will continue to monitor. Related to Mixed hyperlipidemia Mood stable. Continu e current treatment - citalopram 20 mg to 1.5 tabs daily. Recommend regular exercise to help increase mood. Monitor. Notify for any changes in mood or if developing SI/HI. Related to Mood changes History of single ve ssel ID. Asymptomatic. Negative stress test in 2018 - continue to complete stress tests annually. Continue current treatment - ASA 81 mg one tab once daily and losartan 50 mg 1/2 tab once daily. Will continue to modify risk factors. Will continue to monitor. Related to Old ID (myocardial infarction) Elevated. RESTART me toprolol 25 mg once daily. Continue current treatment - losartan 50 mg 1/2 tab once daily and ASA 81 mg one tab once daily. Encouraged low-sodium, low-sugar diet. Will continue to monitor. Related to Benign hypertension with CKD (chronic kidney disease), stage II Asymptomatic. Contin ue current treatment - ASA 81 mg one tab once daily and losartan 50 mg 1/2 tab once daily. Will continue to modify risk factors. Will continue to monitor. Status: Meeting treatment plan goals. Goals: Your goal is to manage your medicine. Barriers: No barriers to goal achievement have been identified. Related to Coronary artery disease involving [place] coronary artery of [place] heart without angina pectoris Encourage ample hydr ation. Avoid nephrotoxins like NSAID pain killers as possible. Related to Chronic kidney disease, stage 2 (mild) Medication management Dietary management e ducation, guidance, and counseling Related to Body mass index (BMI) 30.0-30.9, adult Giving encouragement to exercise Related to Body mass index (BMI) 30.0-30.9, adult Pt reports marijuana use. Will continue to monitor. Related to Marijuana use Screen PSA in office today. Rela mariza to Screening PSA (prostate specific antigen) See plan #11. Labs: PSA, LP, CMPFollow up in 3 months for hypertension or sooner as needed.Contact Dr. Loera BEFORE you go to the Emergency Room. Providers are available 24 hrs/day for medical problems. The ER is for life-threatening emergencies- most patient medical problems can be handled by the Providers over the phone or in the office. Emergency Room visits are expensive and time-consuming. Office: [phone] performed by Errol Rodriguez, acting as scribe for Dr. Loera.Dr. Akhil Loera MD: I reviewed the chart and agree with and approve of the documentation. Related to Body mass index (BMI) 30.0-30.9, adult Order colonoscopy. Related to Sc reen for colon cancer BMI of 30.86 today. Encouraged healthy dietary choices and increased activity. Focus on drinking plenty of water daily and getting adequate sleep. Will continue to monitor. Related to Morbid obesity Stent in LAD placed in 2004 following single vessel ID. Related to History of intravascular stent placement Stable. Continue cur rent treatment - Cialis 5 mg as needed. Will monitor. Related to Erectile dysfunction, unspecified erectile dysfunction type Mood stable. Continu e current treatment - citalopram 20 mg to 1.5 tabs daily. Recommend regular exercise to help increase mood. Monitor. Notify for any changes in mood or if developing SI/HI. Related to Mood changes History of single ve ssel ID. Asymptomatic. Negative stress test in 2018 - continue to complete stress tests annually. Continue current treatment - Metoprolol tartrate 25 mg one tab twice daily, ASA 81 mg one tab once daily, and losartan 50 mg 1/2 tab once daily. Will continue to modify risk factors. Will continue to monitor. Related to Old ID (myocardial infarction) Asymptomatic. Contin ue current treatment - Metoprolol tartrate 25 mg one tab twice daily, ASA 81 mg one tab once daily, and losartan 50 mg 1/2 tab once daily. Will continue to modify risk factors. Will continue to monitor. Status: Meeting treatment plan goals. Goals: Your goal is to manage your medicine. Barriers: No barriers to goal achievement have been identified. Related to Coronary artery disease involving [place] coronary artery of [place] heart without angina pectoris Controlled. Continue current treatment - losartan 50 mg 1/2 tab once daily and, ASA 81 mg one tab once daily. Encouraged low-sodium, low-sugar diet. Will continue to monitor.STOP metoprolol tartrate 25 mg one tab twice daily. Related to Benign hypertension with CKD (chronic kidney disease), stage II Encouraged a low-cho lesterol diet with regular cardiovascular exercise as tolerated. Continue current treatment - atorvastatin 40 mg once daily as directed and ASA 81 mg once daily. Will continue to monitor. Related to Mixed hyperlipidemia Encourage ample hydr ation. Avoid nephrotoxins like NSAID pain killers as possible. Related to Chronic kidney disease, stage 2 (mild) Medication management Giving encouragement to exercise Related to Body mass index (BMI) 30.0-30.9, adult Dietary management e ducation, guidance, and counseling Related to Body mass index (BMI) 30.0-30.9, adult See plan #8Labs: Non e todayFollow up in 4 months for HTN/CAD or sooner as needed.Contact Dr. Loera BEFORE you go to the Emergency Room. Providers are available 24 hrs/day for medical problems. The ER is for life-threatening emergencies- most patient medical problems can be handled by the Providers over the phone or in the office. Emergency Room visits are expensive and time-consuming. Office: [phone] performed by Evelyn Gonzalez, acting as scribe for Dr. Loera. Dr. Luz Maria MD: I reviewed the chart and agree with and approve of the documentation. Related to Body mass index (BMI) 31.0-31.9, adult Symptomatic with nec k pain, secondary to fall (07/2020). Continue current treatment - piroxicam 20 mg once daily and tizanidine 4 mg 1/2-1 tab once daily. Encouraged pt to ambulate with caution and continue following with PT and pain management. Advised pt to sleep with splint at night. Will continue to monitor. Related to Right upper extremity numbness Most recent fall 07/22 021. Encouraged pt to ambulate with caution and continue following with PT and pain management. Will continue to monitor. Related to Hx of fall Stable. Continue cur rent treatment - Cialis 5 mg as needed. Will monitor. Related to Erectile dysfunction, unspecified erectile dysfunction type Stent in LAD placed in 2004 following single vessel ID. Related to History of intravascular stent placement Symptomatic, with oc casional anger. INCREASE citalopram 20 mg to 1.5 tabs daily. Recommend regular exercise to help increase mood. Monitor. Notify for any changes in mood or if developing SI/HI. Related to Mood changes Encouraged a low-cho lesterol diet with regular cardiovascular exercise as tolerated. Continue current treatment - atorvastatin 40 mg once daily as directed and ASA 81 mg once daily. Will continue to monitor. Related to Mixed hyperlipidemia BMI of 31.45 today. Encouraged healthy dietary choices and increased activity. Focus on drinking plenty of water daily and getting adequate sleep. Will continue to monitor. Related to Morbid obesity Encourage ample hydr ation. Avoid nephrotoxins like NSAID pain killers as possible. Related to Chronic kidney disease, stage 2 (mild) Asymptomatic. Contin ue current treatment - Metoprolol tartrate 25 mg one tab twice daily, ASA 81 mg one tab once daily, and losartan 50 mg 1/2 tab once daily. Will continue to modify risk factors. Will continue to monitor. Status: Meeting treatment plan goals. Goals: Your goal is to manage your medicine. Barriers: No barriers to goal achievement have been identified. Related to Coronary artery disease involving [place] coronary artery of [place] heart without angina pectoris History of single ve ssel ID. Asymptomatic. Negative stress test in 2018 - continue to complete stress tests annually. Continue current treatment - Metoprolol tartrate 25 mg one tab twice daily, ASA 81 mg one tab once daily, and losartan 50 mg 1/2 tab once daily. Will continue to modify risk factors. Will continue to monitor. Related to Old ID (myocardial infarction) Controlled. Continue current treatment - losartan 50 mg 1/2 tab once daily, metoprolol tartrate 25 mg one tab twice daily, ASA 81 mg one tab once daily. Encouraged low-sodium, low-sugar diet. Will continue to monitor.Discussed tapering off metoprolol tartrate since pt has been taking it for 3+ years. Related to Benign hypertension with CKD (chronic kidney disease), stage II Medication management Dietary management e ducation, guidance, and counseling Related to Body mass index (BMI) 31.0-31.9, adult Giving encouragement to exercise Related to Body mass index (BMI) 31.0-31.9, adult Symptomatic - ringin g in both ears occasionally. Notify if symptoms worsen. Will monitor. Related to Tinnitus of both ears Mood stable. Continu e current treatment - citalopram 20 mg once daily. Recommend regular exercise to help increase mood. Monitor. Notify for any changes in mood or if developing SI/HI. Related to Mood changes Stable. Continue cur rent treatment - Cialis 5 mg as needed. Will monitor. Related to Erectile dysfunction, unspecified erectile dysfunction type BMI of 31.10 today w ith 3 + comorbidities (HTN, CKD, HLD, CAD). Congratulated pt on recent weight loss! Encouraged pt to continue with intermittent fasting. Encouraged healthy dietary choices and increased activity. Focus on drinking plenty of water daily and getting adequate sleep. Will continue to monitor. Related to Morbid obesity Stent in LAD placed in 2004 following single vessel ID.Labs: None todayFollow up in 4 months for HTN or sooner as needed. Contact Dr. Loera BEFORE you go to the Emergency Room. Providers are available 24 hrs/day for medical problems. The ER is for life-threatening emergencies- most patient medical problems can be handled by the Providers over the phone or in the office. Emergency Room visits are expensive and time-consuming. Office: [phone] performed by Evelyn Gonzalez, acting as scribe for Dr. Loera. Dr. Luz Maria MD: I reviewed the chart and agree with and approve of the documentation. Related to History of intravascular stent placement Encouraged a low-cho lesterol diet with regular cardiovascular exercise as tolerated. Continue current treatment - atorvastatin 40 mg one tab once daily as directed and ASA 81 mg one tab once daily. Will continue to monitor. Related to Mixed hyperlipidemia History of single ve ssel ID. Asymptomatic. Negative stress test in 2018 - continue to complete stress tests annually. Continue current treatment - Metoprolol tartrate 25 mg one tab twice daily, ASA 81 mg one tab once daily, and losartan 50 mg 1/2 tab once daily. Will continue to modify risk factors. Will continue to monitor. Related to Old ID (myocardial infarction) Asymptomatic. Contin ue current treatment - Metoprolol tartrate 25 mg one tab twice daily, ASA 81 mg one tab once daily, and losartan 50 mg 1/2 tab once daily. Will continue to modify risk factors. Will continue to monitor. Status: Meeting treatment plan goals. Goals: Your goal is to manage your medicine. Barriers: No barriers to goal achievement have been identified. Related to Coronary artery disease involving [place] coronary artery of [place] heart without angina pectoris Encourage ample hydr ation. Avoid nephrotoxins like NSAID pain killers as possible. Related to Chronic kidney disease, stage 2 (mild) Controlled. Continue current treatment - losartan 50 mg 1/2 tab once daily, metoprolol tartrate 25 mg one tab twice daily, ASA 81 mg one tab once daily. Encouraged low-sodium, low-sugar diet. Will continue to monitor. Related to Benign hypertension with CKD (chronic kidney disease), stage II Medication management Dietary management e ducation, guidance, and counseling Related to Body mass index (BMI) 32.0-32.9, adult Giving encouragement to exercise Related to Body mass index (BMI) 32.0-32.9, adult Screen PSA Related to Paul vasques PSA (prostate specific antigen) Stent in LAD placed in 2004 following single vessel ID.Labs: LP, CMP, PSAFollow up in 4 months for HTN or sooner as needed. Contact Dr. Loera BEFORE you go to the Emergency Room. Providers are available 24 hrs/day for medical problems. The ER is for life-threatening emergencies- most patient medical problems can be handled by the Providers over the phone or in the office. Emergency Room visits are expensive and time-consuming. Office: [phone] performed by Kathryn Dubois, acting as scribe for Dr. Loera. Dr. Luz Maria MD: I reviewed the chart and agree with and approve of the documentation. Related to History of intravascular stent placement BMI of 31.81 today w ith 3 + comorbidities (HTN, CKD, HLD, CAD). Given information on intermittent fasting today. Encouraged healthy dietary choices and increased activity. Focus on drinking plenty of water daily and getting adequate sleep. Will continue to monitor. Related to Morbid obesity Asymptomatic. The pa tient will continue with the current treatment - Metoprolol tartrate 25 mg one tab twice daily, ASA 81 mg one tab once daily, and losartan 50 mg one tab once daily as directed. Will continue to modify risk factors. Will continue to monitor. Status: Meeting treatment plan goals. Goals: Your goal is to manage your medicine. Barriers: No barriers to goal achievement have been identified. Related to Coronary artery disease involving [place] coronary artery of [place] heart without angina pectoris Encourage ample hydr ation. Avoid nephrotoxins like NSAID pain killers as possible. Related to Chronic kidney disease, stage 2 (mild) History of single ve ssel ID. Asymptomatic. Negative stress test in 2018 - continue to complete stress tests annually. The patient will continue with the current treatment - Metoprolol tartrate 25 mg one tab twice daily, ASA 81 mg one tab once daily, and losartan 50 mg one tab once daily as directed. Will continue to modify risk factors. Will continue to monitor. Related to Old ID (myocardial infarction) Controlled. Continue current treatment plan - losartan 50 mg 1/2 tab once daily, metoprolol tartrate 25 mg one tab twice daily, ASA 81 mg one tab once daily. Encouraged low-sodium, low-sugar diet. Will continue to monitor. Related to Benign hypertension with CKD (chronic kidney disease), stage II Encouraged a low-cho lesterol diet with regular cardiovascular exercise as tolerated. Continue current treatment plan - atorvastatin 40 mg one tab once daily as directed and ASA 81 mg one tab once daily. Will continue to monitor. Related to Mixed hyperlipidemia Dietary management e ducation, guidance, and counseling Related to Body mass index (BMI) 31.0-31.9, adult Giving encouragement to exercise Related to Body mass index (BMI) 31.0-31.9, adult Medication management Stent in LAD placed in 2004 following single vessel ID.Labs: None todayFollow up in 4 months for HTN or sooner as needed. Contact Dr. Loera BEFORE you go to the Emergency Room. Providers are available 24 hrs/day for medical problems. The ER is for life-threatening emergencies- most patient medical problems can be handled by the Providers over the phone or in the office. Emergency Room visits are expensive and time-consuming. Office: [phone] performed by Kathryn Dubois, acting as scribe for Dr. Loera. Dr. Luz Maria MD: I reviewed the chart and agree with and approve of the documentation. Related to History of intravascular stent placement Encouraged a low-cho lesterol diet with regular cardiovascular exercise as tolerated. Continue current treatment plan - atorvastatin 40 mg one tab once daily as directed and ASA 81 mg one tab once daily. Will continue to monitor Related to Mixed hyperlipidemia BMI of 34.20 today w ith 3 + comorbidities (HTN, CKD, HLD, CAD). Given information on intermittent fasting today. Encouraged healthy dietary choices and increased activity. Focus on drinking plenty of water daily and getting adequate sleep. Will continue to monitor. Related to Morbid obesity History of single ve ssel ID. Asymptomatic. Negative stress test in 2018 - continue to complete stress tests annually. The patient will continue with the current treatment - Metoprolol tartrate 25 mg one tab twice daily, ASA 81 mg one tab once daily, and losartan 50 mg one tab once daily as directed. Will continue to modify risk factors. Will continue to monitor. Related to Old ID (myocardial infarction) Elevated. Continue c urrent treatment plan - metoprolol tartrate 25 mg one tab twice daily, ASA 81 mg one tab once daily, and losartan 25 mg once daily. Encouraged low-sodium, low-sugar diet. Will continue to monitor. Related to Benign hypertension with CKD (chronic kidney disease), stage II Asymptomatic. The pa tient will continue with the current treatment - Metoprolol tartrate 25 mg one tab twice daily, ASA 81 mg one tab once daily, and losartan 50 mg one tab once daily as directed. Will continue to modify risk factors. Will continue to monitor. Status: Meeting treatment plan goals. Goals: Your goal is to manage your medicine. Barriers: No barriers to goal achievement have been identified. Related to Coronary artery disease involving [place] coronary artery of [place] heart without angina pectoris Encourage ample hydr ation. Avoid nephrotoxins like NSAID pain killers as possible. Related to Chronic kidney disease, stage 2 (mild) Giving encouragement to exercise Related to Body mass index (BMI) 34.0-34.9, adult Medication management Dietary management e ducation, guidance, and counseling Related to Body mass index (BMI) 34.0-34.9, adult Administered flu rafael t.Administered pneumovax 23. Labs: None todayFollow up in 4 months for HTN or sooner as needed. Contact Dr. Loera BEFORE you go to the Emergency Room. Providers are available 24 hrs/day for medical problems. The ER is for life-threatening emergencies- most patient medical problems can be handled by the Providers over the phone or in the office. Emergency Room visits are expensive and time-consuming. Office: [phone] performed by Kathryn Dubois, acting as scribe for Dr. Loera. Dr. Luz Maria MD: I reviewed the chart and agree with and approve of the documentation. Related to Encounter for immunization Stent in LAD placed in 2004 following single vessel ID. Related to History of intravascular stent placement Encouraged a low-cho lesterol diet with regular cardiovascular exercise as tolerated. Continue current treatment plan - atorvastatin 40 mg one tab once daily as directed and ASA 81 mg one tab once daily. Will continue to monitor Related to Mixed hyperlipidemia Asymptomatic. The pa tient will continue with the current treatment - Metoprolol tartrate 25 mg one tab twice daily, ASA 81 mg one tab once daily, and losartan 50 mg one tab once daily as directed. Will continue to modify risk factors. Will continue to monitor. Status: Meeting treatment plan goals. Goals: Your goal is to manage your medicine. Barriers: No barriers to goal achievement have been identified. Related to Coronary artery disease involving [place] coronary artery of [place] heart without angina pectoris History of single ve ssel ID. Asymptomatic. Negative stress test in 2018 - continue to complete stress tests annually. The patient will continue with the current treatment - Metoprolol tartrate 25 mg one tab twice daily, ASA 81 mg one tab once daily, and losartan 50 mg one tab once daily as directed. Will continue to modify risk factors. Will continue to monitor. Related to Old ID (myocardial infarction) Controlled. Continue current treatment plan - metoprolol tartrate 25 mg one tab twice daily, ASA 81 mg one tab once daily, and losartan 25 mg one tab once daily as directed. Encouraged low-sodium, low-sugar diet. Will continue to monitor. Related to Benign hypertension with CKD (chronic kidney disease), stage II Encourage ample hydr ation. Avoid nephrotoxins like NSAID pain killers as possible. Related to Chronic kidney disease, stage 2 (mild) BMI of 33.64 today w ith 3 + comorbidities. Given information on intermittent fasting today. Encouraged healthy dietary choices and increased activity. Focus on drinking plenty of water daily and getting adequate sleep. Will continue to monitor. Related to Morbid obesity Medication management Ordered PSA today. L abs: CMP, LP, PSAFollow up in 4 months for HTN or sooner as needed. Contact Dr. Loera BEFORE you go to the Emergency Room. Providers are available 24 hrs/day for medical problems. The ER is for life-threatening emergencies- most patient medical problems can be handled by the Providers over the phone or in the office. Emergency Room visits are expensive and time-consuming. Office: [phone] Charting performed by Quita Dejesus, acting as scribe for Dr. Loera. Kenneth Loera MD: I reviewed the chart and agree with and approve of the documentation. Related to Screening PSA (prostate specific antigen) History of single ve ssel ID. Asymptomatic. Negative stress test in 2018 - continue to complete stress tests annually. The patient will continue with the current treatment - Metoprolol tartrate 25 mg one tab twice daily, ASA 81 mg one tab once daily, and losartan 50 mg one tab once daily as directed. Will continue to modify risk factors. Will continue to monitor. Related to Old ID (myocardial infarction) Asymptomatic. The pa amy will continue with the current treatment - Metoprolol tartrate 25 mg one tab twice daily, ASA 81 mg one tab once daily, and losartan 50 mg one tab once daily as directed. Will continue to modify risk factors. Will continue to monitor. Status: Meeting treatment plan goals. Goals: Your goal is to manage your medicine. Barriers: No barriers to goal achievement have been identified. Related to Coronary artery disease involving [place] coronary artery of [place] heart without angina pectoris BMI of 35.44 today w ith 3 + comorbidities. Encouraged healthy dietary choices and increased activity. Focus on drinking plenty of water daily and getting adequate sleep. Will continue to monitor. Related to Morbid obesity Controlled. Continue current treatment plan - metoprolol tartrate 25 mg one tab twice daily, ASA 81 mg one tab once daily, and losartan 50 mg one tab once daily as directed. Encouraged low-sodium, low-sugar diet. Will continue to monitor. Related to Benign hypertension with CKD (chronic kidney disease), stage II Encouraged a low-cho lesterol diet with regular cardiovascular exercise as tolerated. Continue current treatment plan - atorvastatin 40 mg one tab once daily as directed and ASA 81 mg one tab once daily. Will continue to monitor Related to Mixed hyperlipidemia Stent in LAD placed in 2004 following single vessel ID. Related to History of intravascular stent placement Encourage ample hydr ation. Avoid nephrotoxins like NSAID pain killers as possible. Related to Chronic kidney disease, stage 2 (mild) Medication management BMI of 36.3 today wh ich is > BMI of 35 with at least 3 comorbid conditions including: HTN, Hyperlipidemia, CAD, etc (per chronic problem list). Encouraged healthy dietary choices and increased activity. Focus on drinking plenty of water daily and getting adequate sleep. Will continue to monitor.Follow up in 4 months for CAD or sooner as needed Contact Dr. Loera BEFORE you go to the Emergency Room. Providers are available 24 hrs/day for medical problems. The ER is for life-threatening emergencies- most patient medical problems can be handled by the Providers over the phone or in the office. Emergency Room visits are expensive and time-consuming. Office: [phone] Charting performed by Abdulkadir Chi, acting as scribe for Dr. Loera. Kenneth Loera MD: I reviewed the chart and agree with and approve of the documentation. Related to Morbid obesity Encourage ample hydr ation. Avoid nephrotoxins like NSAID pain killers as possible. Related to Chronic kidney disease, stage 2 (mild) Stent in LAD placed in 2004 following single vessel ID. Related to History of intravascular stent placement Encouraged a low-cho lesterol diet with regular cardiovascular exercise as tolerated. Continue current treatment plan - atorvastatin 40 mg one tab once daily as directed and ASA 81 mg one tab once daily. Will continue to monitor Related to Mixed hyperlipidemia Controlled. Continue current treatment plan - metoprolol tartrate 25 mg one tab twice daily, ASA 81 mg one tab once daily, and losartan 50 mg one tab once daily as directed. Encouraged low-sodium, low-sugar diet. Will continue to monitor. Related to Benign hypertension with CKD (chronic kidney disease), stage II History of single ve ssel ID. Asymptomatic. Negative stress test in 2018 - continue to complete stress tests annually. The patient will continue with the current treatment - Metoprolol tartrate 25 mg one tab twice daily, ASA 81 mg one tab once daily, and losartan 50 mg one tab once daily as directed. Will continue to modify risk factors. Will continue to monitor. Related to Old ID (myocardial infarction) Asymptomatic. The pa juliethalba will continue with the current treatment - Metoprolol tartrate 25 mg one tab twice daily, ASA 81 mg one tab once daily, and losartan 50 mg one tab once daily as directed. Will continue to modify risk factors. Will continue to monitor. Status: Meeting treatment plan goals. Goals: Your goal is to manage your medicine. Barriers: No barriers to goal achievement have been identified. Related to Coronary artery disease involving lower [place] coronary artery of [place] heart without angina pectoris Medication management Assessments Type Assessment Date No Information Patient Care Teams Name Effective Dates (start - stop) Status Members No Information
--- OUTSIDE RECORDS SUMMARY | 2025-01-27 06:51 | XMS_ITS | Continuity of Care Document ---
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 Name Role Phone Roger Santana MD Unavailable Unavailable Allergies, Adverse Reactions, Alerts Substance Reaction Status Criticality cat dander Active No Information lisinopril Anaphylaxis Active No Information Medications Medication Instructions Dosage Effective Dates (start - stop) Status Comments metoprolol succinate ER 25 mg tablet,extended release 24 hr take 1 tablet by oral route every day 25 MG - Active Lipitor 10 mg tablet take 1 tablet by or al route every day 10 MG - Active Cialis 20 mg tablet take 1 tablet by ora l route every day as needed 20 MG - Active aspirin 81 mg tablet,delayed release take 1 tablet by oral route every day 81 MG - Active Zyrtec 10 mg tablet take 1 tablet by ora l route every day 10 MG - Active fluticasone propionate 50 mcg/actuation nasal spray,suspension inhale 2 spray by intranasal route every day in each nostril 100 MCG - Active Procedures Procedure Date OFFICE/OUTPATIENT VISIT, [facility] Advance Directives Directive Yes / No Effective Date File Name No Information Encounters Encounter Description Practice Location Reason(s) For Visit Diagnoses Date Provider Providers Copied on Encounter OFFICE/OUTPA TIENT VISIT, [facility], [address] [place] [address], [id number], [place] tel:[phone] [facility] CAD (chief complaint) HLP (chief complaint) cough1 (chief complaint) HTN (chief complaint) ED (chief complaint) Essential (primary) hypertensionCoronar y artery disease of [place] coronary artery without angina pectorisMixed hyperlipidemiaChron ic coughHypertrophy of nasal turbinatesMale erectile dysfunction, unspecified 5 Max Duran. [address], [place], [place], [id number] , [place]. tel:+ [phone] Family History Family Member Type Diagnosis Age At Onset Mother Problem of old age 100 Mother Problem OF CAD 68 Brother Problem Alive and well Payers Payer name Insurance type Covered green party ID Authoriza tion(s) Medicare Of [place] WPS MB [id number] Social History Type Description Quantity Date Captured Comments Alcohol Use Details No Caffeine Use Details Unknown Tobacco Use Status Ex-cigarette smoker 025 Smoking Status Former smoker Smoking Tobacco Use Details Cigarette: Age Started: 26, Age Stopped: 46, Years Used 20 Cigarette: 1 Packs per day, Pack Year: 20 Sex Male Vital Signs Date / Time: Height Weight BMI Pulse Rate Blood Pressure Temperature Respiratory Rate Body Surface Area Head Circumference BMI percentile Pulse Ox Inhaled Ox 12:04 PM 69.00 in 215.60 lbs 31.8 4 kg/m eter (2) 66 /min 140/88 mm[Hg] 98.7 F 16 /min Chief Complaint And Reason For Visit From encounter dated '01/27/2025 11:51'. CAD (chief complaint). Description: Pt has CAD with stent. Pt has not seen cardiology for a while Pt takes ASA, metoprolol and he denies any chest pain pt denies any sob HLP (chief complaint). Description: Pt has HLP Pt takes lipitor daily Pt denies any myalgia cough1 (chief complaint). Description: Pt c/o chronic dry cough Pt denies any hemoptysis, sob Pt does have sinus congestion with postnasal drainage. Pt states that his cough is worse at night when helies down. He denies any GERD Pt does have postnasal drainage. Pt denies any fever, chill, sob HTN (chief complaint). Description: pt worked at [employer] and felt some flushing and palpitation andhis bp was slightly high around 140/99 and he went home and had some rest and his symptoms resolved. Pt denies any current symptoms. ED (chief complaint). Description: Pt has ED Pt is on cialis 20 mg daily? Pt denies any chest pain with sex Pt denies any history of BPH Plan Of Treatment Date Type Action Status Referral Referred To: David Otto [address] [place], [address] [phone] Ordered: Referrals: David Otto. Evaluate and treat ordered Appointment [facility] [place] BOOKED History Of Present Illness Encounter Date Complaint History Of Prese nt Illness CAD Pt has CAD with stent. Pt has not seen cardiology for a while Pt takes ASA, metoprolol and he denies any chest pain pt denies any sob HLP Pt has HLP Pt ta kes lipitor daily Pt denies any myalgia HTN pt worked at [employer] and felt some flushing and palpitation and his bp was slightly high around 140/99 and he went home and had some rest and his symptoms resolved. Pt denies any current symptoms. ED Pt has ED Pt is on cialis 20 mg daily? Pt denies any chest pain with sex Pt denies any history of BPH cough1 Pt c/o chronic d ry cough Pt denies any hemoptysis, sob Pt does have sinus congestion with postnasal drainage. Pt states that his cough is worse at night when he lies down. He denies any GERD Pt does have postnasal drainage. Pt denies any fever, chill, sob Instructions Date Instruction Additional Infor mation No Information Assessments Type Assessment Date assessment Essential (primary) hypertension assessment Coronary artery dise ase of [place] coronary artery without angina pectoris assessment Mixed hyperlipidemia assessment Chronic cough assessment Hypertrophy of nasal turbinates assessment Male erectile dysfunction, unspe cified Mental Status Date Cognitive Assessment Orientation - [place] ed to time, place, person, situation.
--- OUTSIDE RECORDS SUMMARY | 2025-04-01 14:51 | XMS_ITS | Clinical Summary ---
Author Organization [facility] [employer] Address [address] [place] [address] Care Team Providers Care Locate Technician Name Role Phone Unknown, Provider Primary Care Provider Unavaila ble Source Comments [facility] [employer],non-owned Affiliates and Associated Physician Practices is amultiple site organization consisting of ambulatory clinics and hospital sitesin [place], [place], [place] and [place]. This disclosure is being madepursuant to the Care Everywhere program and may not contain all information available regarding this patient. Last updated 18.[facility] [employer] Allergies Active Allergy Reactions Criticality Noted Date Comments Losartan Other 04/03/2023 Throat irritation Medications * Be aware that medications may not be up to date on this document. Alwaysverify current medications with the patient. aspirin EC (Ecotrin) 81 MG tablet once daily 9 Active atorvastatin (LIPITOR) 40 MG tablet 0.5 (one-half) tablet once daily 9 Active tadalafil (Cialis) 5 MG tablet at bedtime 9 Active [place]-3 Fatty Acids (FISH OIL) 500 MG capsule once daily 9 Active losartan (COZAAR) 50 MG tablet once daily 9 Active metoprolol tartrate (LOPRESSOR) 25 MG tablet once daily 1 9 Active Folic Acid 20 MG Take by mouth once daily Active gabapentin (Neurontin) 300 MG capsule TAKE 1 CAPSULE BY ORAL ROUTE TWICE DAILY FOR NEUROPATHY Active magnesium (RA Natural Magnesium) 250 MG tablet 2 (two) tablets once daily 4 Active Multiple Vitamins-Minera ls (PX Complete Senior Multivits) TABS Take 1 daily. 3 Active nitroGLYCERIN (Nitrostat) 0.4 MG tablet as needed 3 Active Turmeric 400 MG CAPS Take 1 daily. 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 03/21/2023 History of actinic keratoses 03/11/2020 Seborrheic keratoses 03/10/2020 Dilated pore of Ange of back 03/10/2020 Luna angioma 03/10/2020 Multiple benign melanocytic nevi of upper extremity, lower extremity, and trunk 03/10/2020 Skin tanning due to exposure to ultraviolet ligh t 03/10/2020 History of basal cell carcinoma (BCC) of skin [place] 12/06/2018 Other specified disorder of penis 12/04/2018 History of nonmelanoma skin cancer 04/30/2016 Multiple benign nevi of uppe r and lower extremities, and trunk 04/30/2016 Actinic keratosis 09/01/2015 Solar lentiginosis 08/08/2015 Condyloma acuminatum 08/04/2015 Abscess of anal and rectal regions 12/08/2006 Dermatitis 03/31/2006 03/21/2023 CVA (cerebrovascular accident) 08/06/2004 0 03/21/2023 Encounters Date Type Department Care Team Description 03/25/2025 2:30 PM CDT Office Visit [facility] - Dermatology [facility] [place] [address] Chris Zaragoza MD Actinic keratosis (Primary Dx); History of nonmelanoma skin cancer; Solar lentiginosis; Seborrheic keratosis; Melanocytic nevi of trunk 03/22/2025 Travel from Last 3 Months Family History Medical History Relation Name Comments None Known Brother None Known Father None Known Maternal Aunt None Known Maternal Grandfather None Known Maternal Grandmother None Known Maternal Uncle None Known Mother None Known Other None Known Paternal Aunt None Known Paternal Grandfather None Known Paternal Grandmother None Known Paternal Uncle None Known Sister Asthma Neg Hx CVA Neg Hx Cancer - Breast Neg Hx Cancer - Other Neg Hx Cancer - Skin, Melanoma Neg Hx Cancer - Skin, Non Melanoma Neg Hx Eczema Neg Hx Hemophilia Neg Hx Psoriasis Neg Hx Relation Name Status Comments Brother Father Maternal Aunt Maternal Grandfather Maternal Grandmother Maternal Uncle Mother Other Paternal Aunt Paternal Grandfather Paternal Grandmother Paternal Uncle Sister Social History Tobacco Use Types Packs/Day Years Used Date Smoking Tobacco: Some Days Cigarettes Smokeless Tobacco: Never Sex and Gender Information Value Date Recorded Sex Assigned at Not on file 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 Gender Identity Not on file Sexual Orientation Not on file Last Filed Vital Signs Vital Sign Reading Time Taken Comments Blood Pressure 118/79 11/03/2015 8:58 AM CDT Pulse 58 11/03/2015 8:58 AM CDT Temperature - - Respiratory Rate - - Oxygen Saturation 98% 11/03/2015 8:58 AM CDT Inhaled Oxygen Concentration - - Weight 99.8 kg (220 lb) 11/03/2015 7:22 AM CDT Height 175.3 cm (5' 9) 11/03/2015 7:22 AM CDT Body Mass Index 32.49 11/03/2015 7:22 AM CDT Plan of Treatment Upcoming Encounters Date Type Department Care Team (Late st Contact Info) Description 03/31/2026 2:30 PM CDT Office Visit [facility] - Dermatology [address] [place] [address], [place] [address] Chris Zaragoza MD [address] [place] [address] [address] [place] [address] Health Maintenance Due Date Last Done Comments COLOGUARD (AGES 45-75) - COL ON CA SCREENING 1955 [place] COLONOGRAPHY - COLON CA SCREENING 1955 FIT - COLON CA SCREENING 1955 FLEX SIG - COLON CA SCREENING 1955 MEDICARE AWV 12 MONTHS 1955 HEPATITIS C SCREENING 02/11/1971 DTAP/TDAP/TD VACCINES (1 - Tdap) 02/16/1972 PNEUMOCOCCAL VACCINE 50+ (1 of 2 - PCV) 02/16/1972 ZOSTER VACCINE (1 of 2) 2003 AAA SCREENING 2018 DEPRESSION SCREENING 07/21/2024 COVID-19 VACCINE ( - 2023-2 5 season) 2025 INFLUENZA VACCINE (#1) 2025 Respiratory Syncytial Virus (RSV) Vaccine Pt: or over 60 yrs (1 - 1-dose 75+ series) 02/16/2028 COLON MONITORING 08/07/2031 08/07/2021 COLONOSCOPY - COLON CA SCREENING 08/07/2031 08/07/19 Colorectal Cancer Screening 08/07/2031 HEPATITIS B VACCINE Aged Out No longe r eligible based on patient's age to complete this topic HIB VACCINE Aged Out No longer eligi ble based on patient's age to complete this topic HPV VACCINE Aged Out No longer eligi ble based on patient's age to complete this topic MENINGOCOCCAL (Group B) VACC INE SHARED DECISION-MAKING Aged Out No longer eligibl e based on patient's age to complete this topic MENINGOCOCCAL GROUPS A/C/Y/W VACCINE Aged Out No longer eligible b ased on patient's age to complete this topic Procedures Procedure Name Priority Date/Time Associated Diagnosis Comments NH DESTROY PREMALIG LESION, 1ST LESION Routine 03/25/2025 2:44 PM CDT Actinic keratosis from Last 3 Months Results * NH DESTROY PREMALIG LESION, 1ST LESION (03/25/2025 2:44 PM CDT) Narrative Chris Zaragoza MD - 03/25/2025 2:44 PM CDT Chris Zaragoza MD 03/25/2025 2:44 PM Procedure: liquid nitrogen/cryotherapy Liquid nitrogen was applied with the spray cannister to the affected skin lesion(s). The expected reaction ranges from minimal changes to scabbing, crust, blistering, or swelling, which can be painful. Color changes different from the surrounding skin are expected and can be either enrichment teacher or darker--this can sometimes take a long time to fully resolve, and in some cases, it may not ever fully look like the surrounding skin--there is a delicate balance between freezing hard enough for efficacy and such side effects that is different for different people. There is a small risk of infection similar to any time there is a break in the skin. Blister/wound care discussed, handout given. Return if lesions fail to fully resolve. Verbal consent obtained prior to any procedures being done. Chris Zaragoza MD PROCEDURE/MINOR SURGICAL ORDERA BLES Final Result from Last [address] [facility] MEDICARE Care Teams Locate Technician Relationship Specialty Start Date End Date Unknown, Provider PCP - General 03/23/25
--- OUTSIDE RECORDS SUMMARY | 2025-04-01 14:51 | XMS_ITS | Clinical Summary ---
Author Organization [facility] Address [address] [place] [address] Care Team Providers Care Knockup Worker Name Role Phone Unavailable Primary Care Provider Unavailabl e Social History Tobacco Use Types Packs/Day Years Used Date Smoking Tobacco: Never Assessed Sex and Gender Information Value Date Recorded Sex Assigned at Not on file Legal Sex Male 9:45 AM CDT Gender Identity Not on file Sexual Orientation Not on file Plan of Treatment Upcoming Encounters Date Type Department Care Team (Late st Contact Info) Description 11/28/2025 9:00 AM CDT Office Visit [facility] Family [facility] Internal Medicine [id number] [place] [address] Sai Rubio DO [address] [place] [address] Health Maintenance Due Date Last Done Comments Colorectal Cancer Screening Colonoscopy (10 Years) 1955 Hepatitis C 1971 DTaP, Tdap and Td Vaccines ( 1 - Tdap) 02/16/1972 Pneumococcal Vaccine: 50+ Ye ars (1 of 1 - PCV) 2003 Zoster Vaccines (1 of 2) 2003 Annual Medicare Wellness Visit 2018 COVID-19 Vaccine (1 - 2023-2 5 season) 2025 RSV Immunization or 60+ Years (1 - 1-dose 75+ series) 02/16/2028 Meningococcal B Vaccine Aged Out No l onger eligible based on patient's age to complete this topic Meningococcal Vaccine Aged Out No mariah jaleesa eligible based on patient's age to complete this topic RSV Immunizations Under 20 Months Aged Out No longer eligible based on patient's age to complete this topic Insurance [facility] MEDICARE
[2025-04-01 15:11] LABS: Hemoglobin A1C 5.8 % (<5.7)
[2025-04-01 15:16] LABS: Alanine Aminotransferase 27 U/L (6-50); Albumin Level 4.8 g/dL (3.5-5.1); Alkaline Phosphatase 93 U/L (38-126); Anion Gap 10 mmol/L (4-12); Aspartate Amino Transferase 37 U/L (17-59); Bilirubin,Total 1.0 mg/dL (0.2-1.3); Blood Urea Nitrogen 16 mg/dL (9-20); Calcium 8.8 mg/dL (8.4-10.2); Carbon Dioxide 24 mmol/L (22-30); Chloride 103 mmol/L (98-107); Cholesterol 169 mg/dL (0-200); Estimated Glomerular Filt Rate > 60; Glucose 83 mg/dL (65-110); HDL Direct 42 mg/dL; Potassium 4.1 mmol/L (3.4-5.0); Sodium 137 mmol/L (137-145); Total Protein 8.2 g/dL (6.3-8.2); Triglycerides 87 mg/dL (<150)
[2025-04-01 15:45] LABS: Thyroid Stimulating Hormone Reflex 1.560 uIU/mL (0.465-4.68)
== END 2025-04-01 14:06 | disposition home or self-care (01) ==
PROVIDERS: PCP Emergency Medicine; Visit Provider Internal Medicine Cardiovascular Disease
DX: I21.9 Acute myocardial infarction, unspecified (principal); I10 Essential (primary) hypertension; I25.10 Atherosclerotic heart disease of native coronary artery without angina pectoris
CPT/HCPCS: 36415; 80053; 80061; 83036; 84443